=== PATIENT | female | born 1970 | race African-American/Black ===

== ENCOUNTER → 2017-03-13 | Outpatient (CLI) | payer OTHER ==
[~2017-03-13] MED LIST: CIPRO PO; EFFEXOR XR150 MG PO; FLEXERIL PO; FOLIC ACID1 MG PO; IBUPROFEN400 MG PO; IBUPROFEN800 MG PO; IRON1 TAB PO; KETOPROFEN PO; LEVSIN; MELOXICAM15 MG PO; NO MEDICATIONS; PREDNISONE10 MG PO; VICODIN 5/500 T1 TAB PO; VIT B-12 PO; [UNRECOGNIZED DRUG - REMARK]
--- NOTE | ~2017-03-13 | XA77 ---
[facility] A Service of [facility] RADIOLOGY TEXT RESULTS PATIENT: BRITNI WILSON LOCATION: [facility] : 74 UNIT #: [id number] AGE: [address]: Caden Hill MD SEX: F ORDER DR: [id number] [facility] [address] [place], [place] [address] [id number] O MR#: [id number] Acc #: [id number] NAME: BRITNI WILSON : 1970 SEX: F STUDY DATE/TIME: 03/13/2017 10:06 [facility] RO[facility]: STUDY DESCRIPTION: XA CVC Port Devive Check Attending Physician: Caden Hill M.D., Ph.D. Ordering Physician: Caden Hill M.D., Ph.D. Primary Care Physician: No Primary Care Physician MEDICAL IMAGING REPORT This report is preliminary unless electronic signature is present EXAM Port check. INDICATION Malfunctioning port. Patient reports there has been difficulty accessing and aspirated from her port. PROCEDURE The risks, benefits, and alternatives to the procedure where explained to the patient and signed, informed consent was obtained. She was placed supine on the angiographic table. The port was accessed by the IVR nurse. It flushed and aspirated easily. At this point, I performed a catheter gram through the port which showed no evidence of fibrin sheath or extravasation of contrast material. The port itself is somewhat angled obliquely along the patient's chest wall. I would suggest when accessing the port to hold it firmly between 2 fingers and pressing it down towards the chest wall to stabilize it. The port was subsequently de-accessed. The patient tolerated the procedure well. total fluoroscopy time was 0.8 minutes. AK was 40 mGy. IMPRESSION No evidence of fibrin sheath or catheter malfunction. Port flushed and aspirated easily after been accessed by the IVR nurse. I suspect some of the difficulties related to the port may be related to access as it is somewhat obliquely oriented along the patient's chest wall. Firmly holding the port between 2 fingers and pushing it against the chest wall may stabilize it an make it easier to access. Dictated by... Sallie Ng M.D. [facility] A Service of [facility] RADIOLOGY TEXT RESULTS PATIENT: BRITNI WILSON LOCATION: [facility] #: [id number] : 74 UNIT #: [id number] AGE: [address]: Caden Hill MD SEX: F ORDER DR: THIS IS AN ELECTRONICALLY VERIFIED REPORT Sallie Ng M.D. at 03/14/2017 4:42 PM AFF/tmw TD: 03/14/2017 09:16 JOB #: [id number] MEDICAL IMAGING REPORT Page 1 of 1 COPY
== END | disposition home or self-care (01) ==
LOC: CIVR 09:34
DX: Z45.2 Encounter for adjustment and management of vascular access device (principal); D61.818 Other pancytopenia; D46.0 Refractory anemia without ring sideroblasts, so stated
CPT/HCPCS: J1642; Q9967

== ENCOUNTER → 2017-05-01 | Outpatient (CLI) | payer OTHER | END | disposition home or self-care (01) | LOC: CLAB 14:41 | DX: D64.9 Anemia, unspecified (principal) | CPT/HCPCS: 36415; 86850; 86900; 86901; 86902; 86922 ==

== ENCOUNTER → 2017-05-03 | Outpatient (CLI) | payer OTHER | END | disposition home or self-care (01) | LOC: CSSDAY 08:00 | DX: D64.9 Anemia, unspecified (principal) | CPT/HCPCS: 36430; J1940; P9016 ==